=== PATIENT | female | born 1970 ===

== ENCOUNTER 2020-02-15 14:50 | Inpatient (IN) | payer OTHER ==
[~2020-02-15] VITALS: Ht 157.5 cm; Wt 92.1 kg
[2020-02-15] MEDS ORDERED: LEVOTHYROXINE25 MCG PO (15:48)
== END 2020-02-18 20:09 | disposition home or self-care (01) | DRG 208 ==
LOC: ER 14:50 → MEDJ 19:59
PROVIDERS: ADMIT Internal Medicine; ATTEND Internal Medicine
PROC: 8E0ZXY6 Isolation (ICD-10-PCS; 2020-02-15)
PROC: 4A033R1 Measurement of Arterial Saturation, Peripheral, Percutaneous Approach (ICD-10-PCS; 2020-02-15)
PROC: 5A1945Z Respiratory Ventilation, 24-96 Consecutive Hours (ICD-10-PCS; principal; 2020-02-16)
PROC: 4A12X4Z Monitoring of Cardiac Electrical Activity, External Approach (ICD-10-PCS; 2020-02-16)
DX: U07.1 COVID-19 (principal); J12.89 Other viral pneumonia; E03.9 Hypothyroidism, unspecified; E66.8 Other obesity

== ENCOUNTER 2020-11-28 15:18 | Outpatient (CLI) | payer OTHER ==
[~2020-11-28 15:18] MED LIST: LEVOTHYROXINE25 MCG PO
== END 2020-11-28 18:00 | disposition home or self-care (01) ==
LOC: LAB 15:18
PROVIDERS: ATTEND Emergency Medicine Pediatric Emergency Medicine
DX: Z20.828 Contact with and (suspected) exposure to other viral communicable diseases (principal)

== ENCOUNTER 2020-12-05 09:15 | Outpatient (CLI) | payer OTHER | END 2020-12-05 15:00 | disposition home or self-care (01) | LOC: LAB 09:15 | PROVIDERS: ATTEND Emergency Medicine Pediatric Emergency Medicine | DX: Z03.818 Encounter for observation for suspected exposure to other biological agents ruled out (principal) ==

== ENCOUNTER 2021-03-28 06:50 | Outpatient (CLI) | payer OTHER | END 2021-03-28 06:56 | disposition home or self-care (01) | LOC: LAB 06:50 | DX: E78.49 Other hyperlipidemia (principal); E03.8 Other specified hypothyroidism; M06.4 Inflammatory polyarthropathy; I10 Essential (primary) hypertension ==

== ENCOUNTER 2021-03-28 16:00 | Outpatient (CLI) | payer OTHER | END 2021-03-28 16:04 | disposition home or self-care (01) | LOC: RAD 16:00 | PROVIDERS: ATTEND Family Medicine | DX: M43.8X7 Other specified deforming dorsopathies, lumbosacral region (principal); M54.59 Other low back pain ==

== ENCOUNTER 2021-04-05 06:56 | Outpatient (CLI) | payer OTHER | END 2021-04-05 15:00 | disposition home or self-care (01) | LOC: LAB 06:56 | DX: Z03.818 Encounter for observation for suspected exposure to other biological agents ruled out (principal); Z20.828 Contact with and (suspected) exposure to other viral communicable diseases ==

== ENCOUNTER 2021-06-15 16:08 | Outpatient (CLI) | payer OTHER | END 2021-06-15 16:11 | disposition home or self-care (01) | LOC: LAB 16:08 | PROVIDERS: ATTEND Internal Medicine | DX: Z20.828 Contact with and (suspected) exposure to other viral communicable diseases (principal) ==

== ENCOUNTER 2021-06-22 15:37 | Outpatient (CLI) | payer OTHER | END 2021-06-22 15:47 | disposition home or self-care (01) | LOC: LAB 15:37 | PROVIDERS: ATTEND Internal Medicine | DX: U07.1 COVID-19 (principal) ==

== ENCOUNTER 2021-07-03 06:51 | Outpatient (CLI) | payer OTHER | END 2021-07-03 06:55 | disposition home or self-care (01) | LOC: LAB 06:51 | PROVIDERS: ATTEND Internal Medicine | DX: Z20.822 Contact with and (suspected) exposure to COVID-19 (principal) ==

== ENCOUNTER 2021-07-27 16:03 | Outpatient (CLI) | payer OTHER | END 2021-07-27 16:11 | disposition home or self-care (01) | LOC: LAB 16:03 | DX: D64.9 Anemia, unspecified (principal) ==

== ENCOUNTER 2021-08-21 17:46 | Outpatient (CLI) | payer OTHER | END 2021-08-21 17:52 | disposition home or self-care (01) | LOC: LAB 17:46 | PROVIDERS: ATTEND Internal Medicine | DX: Z11.52 Encounter for screening for COVID-19 (principal); U07.1 COVID-19 ==

== ENCOUNTER 2021-08-28 16:37 | Outpatient (CLI) | payer OTHER | END 2021-08-28 16:49 | disposition home or self-care (01) | LOC: LAB 16:37 | DX: N95.0 Postmenopausal bleeding (principal); Z20.822 Contact with and (suspected) exposure to COVID-19 ==

== ENCOUNTER 2021-09-04 17:09 | Emergency (ER) | payer OTHER ==
[~2021-09-04] VITALS: Ht 157.5 cm; Wt 101.6 kg
== END 2021-09-04 19:28 | disposition home or self-care (01) ==
LOC: ER 17:09
DX: N93.8 Other specified abnormal uterine and vaginal bleeding (principal); R10.2 Pelvic and perineal pain

== ENCOUNTER 2021-10-22 13:27 | Emergency (ER) | payer OTHER ==
[~2021-10-22] VITALS: Ht 157.5 cm; Wt 99.8 kg
== END 2021-10-22 17:06 | disposition home or self-care (01) ==
LOC: ER 13:27
DX: S52.515A Nondisplaced fracture of left radial styloid process, initial encounter for closed fracture (principal); W18.30XA Fall on same level, unspecified, initial encounter; Y93.9 Activity, unspecified; Y92.018 Other place in single-family (private) house as the place of occurrence of the external cause

== ENCOUNTER 2021-10-25 15:30 | Outpatient (CLI) | payer OTHER | END 2021-10-25 15:34 | disposition home or self-care (01) | LOC: LAB 15:30 | DX: U07.1 COVID-19 (principal) ==

== ENCOUNTER 2021-11-10 11:48 | Outpatient (CLI) | payer OTHER | END 2021-11-10 11:51 | disposition home or self-care (01) | LOC: LAB 11:48 | PROVIDERS: ATTEND Internal Medicine | DX: D50.9 Iron deficiency anemia, unspecified (principal) ==

== ENCOUNTER 2021-12-05 06:46 | Outpatient (CLI) | payer OTHER | END 2021-12-05 06:48 | disposition home or self-care (01) | LOC: LAB 06:46 | PROVIDERS: ATTEND Internal Medicine Infectious Disease | DX: D64.9 Anemia, unspecified (principal) ==

== ENCOUNTER 2022-03-11 08:41 | Outpatient (CLI) | payer OTHER | END 2022-03-11 08:44 | disposition home or self-care (01) | LOC: LAB 08:41 | PROVIDERS: ATTEND Internal Medicine | DX: Z20.828 Contact with and (suspected) exposure to other viral communicable diseases (principal); U07.1 COVID-19 ==

== ENCOUNTER 2022-03-25 16:03 | Outpatient (CLI) | payer OTHER | END 2022-03-25 16:11 | disposition home or self-care (01) | LOC: LAB 16:03 | PROVIDERS: ATTEND Internal Medicine | DX: Z20.822 Contact with and (suspected) exposure to COVID-19 (principal) ==

== ENCOUNTER → 2022-04-08 06:45 | Outpatient (CLI) | payer OTHER | END | disposition home or self-care (01) | LOC: LAB 06:45 | PROVIDERS: ATTEND Internal Medicine Endocrinology, Diabetes & Metabolism | DX: E78.2 Mixed hyperlipidemia (principal); E03.9 Hypothyroidism, unspecified ==

== ENCOUNTER → 2022-06-04 06:21 | Outpatient (CLI) | payer OTHER | END | disposition home or self-care (01) | LOC: LAB 06:21 | PROVIDERS: ATTEND Family Medicine | DX: N39.0 Urinary tract infection, site not specified (principal); D50.0 Iron deficiency anemia secondary to blood loss (chronic); E03.8 Other specified hypothyroidism ==

== ENCOUNTER → 2023-05-12 08:49 | Outpatient (CLI) | payer OTHER ==
[2023-05-12 09:33] LABS: HEMATOCRIT 39.3 % (36.0-45.00); MEAN CORPUSCULAR HEMOGLOBIN 26.8 pg (27.00-32.0); MEAN CORPUSCULAR HGB CONC 33.1 g/dl (32.0-36.0); PLATELET COUNT 321 K/uL (150-450); RED BLOOD COUNT 4.85 M/uL (4.00-6.00); RED CELL DISTRIBUTION WIDTH 15.8 % (11.5-14.5)
[2023-05-12 10:24] LABS: ALBUMIN 3.5 gm/dL (3.4-5.0); BILIRUBIN TOTAL 0.42 mg/dL (0.3-1.2); CALCIUM 9.2 mg/dL (8.5-10.1); CHOL HDL RATIO 5.3 (0-5.0); CREATININE SERUM 0.89 mg/dL (0.55-1.02); GFR 66.09; GLOBULINA 4.1 G/DL (2.4-3.5); POTASSIUM 4.21 mEq/L (3.5-5.1); T4 TOTAL 6.89 UG/DL (4.8-13.9); TOTAL PROTEIN 7.6 gm/dL (6.4-8.2); TSH 2.65 uIU/mL (0.358-3.74)
[2023-05-12 14:26] LABS: PH,URINE 5.5 (5.0-8.0); URINE APPEARANCE Clear; URINE BILIRRUBIN Negative (NEGATIVE); URINE BLOOD Negative; URINE COLOR Yellow; URINE GLUCOSE Negative (NEGATIVE); URINE LEUKOCYTE Negative; URINE NITRATE Negative; URINE PROTEIN Negative (NEGATIVE); URINE UROBILINOGEN 0.2 E.U./dl
[2023-05-12 14:29] LABS: URINE BACTERIA 2785.7 uL (0.0-1933); URINE RBC 6.3 uL (0.0-20.8); URINE WBC 35.4 uL (0.0-23.2)
== END | disposition home or self-care (01) ==
LOC: LAB 08:49
PROVIDERS: ATTEND Family Medicine
DX: I10 Essential (primary) hypertension (principal); J01.81 Other acute recurrent sinusitis; Z12.11 Encounter for screening for malignant neoplasm of colon; E03.9 Hypothyroidism, unspecified